=== PATIENT | female | born 1995 | race Caucasian/White ===

== ENCOUNTER 2019-06-24 09:46 | Emergency (ER) | payer OTHER, SELFPAY ==
[2019-06-24 09:47] VITALS: BP 124/73; PULSE 91; RESP 18; TEMP 36.6; O2SAT 100; BMI 24.7
--- NOTE | 2019-06-24 10:03 | ED.VISSUMM ---
- ER Visit Summary Date of Service: 06/24/19 Chief Complaint: Right shoulder injury History of Present Illness: The patient is a 24 F who presents with right shoulder injury that occurred last night. Patient states she fell off of a hay bale and landed on her shoulder. Patient denies any loss of consciousness. Patient denies any paresthesias or weakness. Patient denies any other injuries. Patient states her pain is aching but sharp with movement. Patient denies any radiation of the pain. Patient denies any neck pain but does admit to some mild pain in her back. Physical Examination: Vital signs are stable. Patient is afebrile. Patient is in no acute distress. Musculoskeletal exam reveals tenderness over the right distal clavicle. There is some edema. There is no deformity noted. There is no bony crepitance or step-off. Range of motion of the right shoulder was limited in all motion secondary to pain. Sensation was intact to light touch in the radial, median, ulnar, and axillary areas. Radial pulses are equal bilaterally. Heart was regular rate and rhythm. Lungs are clear and equal bilaterally. There is good respiratory effort noted. Cranial nerves II through XII are intact. There are no focal motor or sensory deficits noted. Test Results: X-rays of the right clavicle were obtained. There is no acute fracture. There is grade 2 separation of the acromioclavicular joint. This was interpreted by the radiologist and myself. Emergency Department Course and Treatment: Patient was given a sling for comfort. Patient was instructed to ice and elevate the right shoulder. Patient was instructed to follow-up with her primary care physician in 5 to 7 days. Patient understood and was agreeable with the plan. All questions were answered. Disposition: Discharge home Impression: Acromioclavicular separation right shoulder This note was generated with [employer] dictation software. It may contain incorrect words, spelling, and punctuation that were not noted in review of the chart prior to signing ED Disposition - Plan for ED Patient: Disposition: Home or Assisted Living Diagnosis: Acromioclavicular joint separation, type 2 Instructions: Shoulder Sprain Referrals: NOT,DEFINED [NON-STAFF] - 5-7 Days
--- NOTE | 2019-06-24 10:11 | RAD_ITS ---
STUDY: X-RAY - RIGHT CLAVICLE REASON FOR EXAM: Female, 24 years old. Pain following a fall TECHNIQUE: 3 view(s) of the clavicle. COMPARISON: None. FINDINGS: Normal clavicle. There is widening of the AC joint, but without displacement of the clavicle or widening of the coracoclavicular distance, consistent with a Type II acromioclavicular dislocation. Normal visualized sternoclavicular articulation. Normal visualized pulmonary apex. RAD/Clavicle IMPRESSION: Type II right AC joint dislocation. Electronically Signed: Sathish Kaur, at 10:41 EDT , Service support ,
== END 2019-06-24 12:42 | disposition home or self-care (01) ==
PROVIDERS: Emergency Provider Emergency Medicine
DX: S43.101A Unspecified dislocation of right acromioclavicular joint, initial encounter (principal); W17.89XA Other fall from one level to another, initial encounter; Y93.9 Activity, unspecified
CPT/HCPCS: 73000; 99283